=== PATIENT | male | born 1975 | race American Indian/Alaskan Native ===

== ENCOUNTER 2020-11-09 11:45 | Observation (INO) | payer OTHER ==
[2020-11-10 03:21] LABS: Basophils % (Auto) 0.4 % (0.0-1.8); Eosinophils # (Auto) 0.2 K/mm3 (0.0-0.4); Eosinophils % (Auto) 2.2 % (0.0-4.3); Hematocrit 43.7 % (35.5-45.6); Hemoglobin 14.6 gm/dl (11.8-15.2); Lymphocytes # (Auto) 1.4 K/mm3 (1.2-5.4); Mean Corpuscular HGB Conc 34 % (32-34); Mean Corpuscular Volume 85 fl (84-94); Monocytes # (Auto) 0.7 K/mm3 (0.0-0.8); Monocytes % (Auto) 8.8 % (0.0-7.3); Platelet Count 359 K/mm3 (140-440); Red Blood Count 5.17 M/mm3 (3.65-5.03); Red Cell Distribution Width 13.5 % (13.2-15.2)
[2020-11-10 04:04] LABS: Alanine Aminotransferase 14 units/L (7-56); Albumin 4.6 g/dL (3.9-5); BUN/Creatinine Ratio 10; Blood Urea Nitrogen 11 mg/dL (9-20); Hemolysis Index 6
--- NOTE | 2020-11-10 04:54 | Cat Scan Report ---
CT abdomen pelvis w con INDICATION / CLINICAL INFORMATION: Pt complains of bi-lateral mid-abdominal pain x 8 days.. TECHNIQUE: Axial CT imaging of abdomen and pelvis was obtained with IV contrast. Coronal and sagittal reformatte d imaging obtained and reviewed. All CT scans at this location are performed using CT dose reduction for ALARA by means of automated exposure control. COMPARISON: None available. FINDINGS: CT abdomen with contrast demonstrates normal appearance of the liver, spleen, pancreas, kidneys, and adrenal glands. The gallbladder appearance is abnormal. There is a large calcified gallstone in the gallbladder neck. This gallstone measures approximately 2.2 cm. The gallbladder is abnormally distended measuring 12.5 cm in length. Additionally there is gallbladder wall thickening. All of the findings are concerning for the presence of acute cholecystitis. No intrahepatic biliary dilatation noted. CT pelvis with contrast does not demonstrate any significant mass, free fluid, or focal inflammatory change. A normal appendix is present. Prostate gland is mildly enlarged. GI tract is unremarkable. Visualized lung bases are clear. No significant acute osseous abnormality. IMPRESSION: 1. Abnormal appearance of the gallbladder. Overall appearance is most consistent with acute cholecyst itis. There is large calcified gallstone within the gallbladder neck with associated gallbladder dist ention and gallbladder wall thickening. 2. Prostate gland is mildly enlarged. 3. No other significant finding. Signer Name: Tonya Nogueira MD Signed: 11/10/2020 4:50 AM Workstation Name: [email or web address]
[2020-11-10] MEDS ORDERED: SODIUM CHLORIDE 0.9% 1000 ML 1,000 ML IV ONE (05:55)
[2020-11-10] MEDS ORDERED: MORPHINE 4 MG/1 ML INJ IV ONE (05:55)
[2020-11-10] MEDS ORDERED: FAMOTIDINE 20 MG/2 ML INJ IV ONE (05:55)
[2020-11-10] MEDS ORDERED: PIPERACIL/TAZOBACTA 4.5/NS 100 4.5 GM/100 ML VIAL IV ONE (05:55)
[2020-11-10] MEDS ORDERED: ONDANSETRON 4 MG/2 ML INJ IV ONE (05:55)
--- NOTE | 2020-11-10 05:58 | Emergency Department Report ---
ED Abdominal Pain HPI - General Chief Complaint: Abdominal Pain Stated Complaint: ABDOMINAL PAIN Source: patient Mode of arrival: Ambulatory Limitations: No Limitations - History of Present Illness Initial Comments: Patient is a 45-year-old -Algerian male with no past medical history presents to the ED with complaint of acute onset persistent diffuse abdominal pain that radiates to the right upper quadrant and epigastric area as well as the right flank for the last 4 days worse in the last 2 days with nausea. Patient states that the pain is persistent and constant and is crampy, sharp and appears to get worse with food. Patient denies fever, chills, vomiting, chest pain, shortness of breath, diarrhea, dysuria, urinary frequency and urgency, testicular pain, hematuria, traumatic injury, back pain or heavy lifting and fall. MD Complaint: abdominal pain (diffuse, worse in RUQ area), other (Nausea) -: Sudden, days(s) (4) Location: diffuse, RUQ Radiation: RUQ, epigastric Migration to: no migration Severity: severe Severity scale (0 -10): 8 Quality: cramping, aching, sharp Consistency: constant Improves With: nothing Worsens With: eating Associated Symptoms: denies other symptoms, nausea, anorexia. denies: vomiting, diarrhea, fever, chills, dysuria, hematemesis, hematochezia, melena, hematuria, syncope - Related Data Allergies Allergy/AdvReac Type Severity Reaction Status Date / Time No Known Allergies Allergy Verified 11/10/20 02:50 ED Review of Systems ROS: Stated complaint: ABDOMINAL PAIN Other details as noted in HPI Constitutional: denies: chills, fever Eyes: denies: eye pain, eye discharge, vision change ENT: denies: ear pain, throat pain Respiratory: denies: cough, shortness of breath, wheezing Cardiovascular: denies: chest pain, palpitations Endocrine: no symptoms reported Gastrointestinal: abdominal pain, nausea. denies: vomiting, diarrhea Genitourinary: denies: urgency, dysuria Musculoskeletal: denies: back pain, joint swelling, arthralgia Skin: denies: rash, lesions Neurological: denies: headache, weakness, paresthesias Psychiatric: denies: anxiety, depression Hematological/Lymphatic: denies: easy bleeding, easy bruising ED Past Medical Hx - Past Medical History Previous Medical History?: No - Surgical History Past Surgical History?: No - Social History Smoking Status: Current Some Day Smoker Substance Use Type: None ED Physical Exam - General Limitations: No Limitations General appearance: alert, in no apparent distress - Head Head exam: Present: atraumatic, normocephalic, normal inspection - Eye Eye exam: Present: normal appearance, PERRL, EOMI Pupils: Present: normal accommodation - ENT ENT exam: Present: normal exam, normal orophraynx, mucous membranes moist, TM's normal bilaterally, normal external ear exam - Neck Neck exam: Present: normal inspection, full ROM - Respiratory Respiratory exam: Present: normal lung sounds bilaterally. Absent: respiratory distress, wheezes, rales, rhonchi, chest wall tenderness, accessory muscle use, decreased breath sounds, prolonged expiratory - Cardiovascular Cardiovascular Exam: Present: regular rate, normal rhythm, normal heart sounds. Absent: systolic murmur, diastolic murmur, rubs, gallop - GI/Abdominal GI/Abdominal exam: Present: soft, tenderness (Palpable RUQ tenderness with guarding and positive Funes sign), guarding, normal bowel sounds. Absent: rebound, rigid, hyperactive bowel sounds, hypoactive bowel sounds, organomegaly - Extremities Exam Extremities exam: Present: normal inspection, full ROM, normal capillary refill - Back Exam Back exam: Present: normal inspection, full ROM. Absent: tenderness, CVA tenderness (R), CVA tenderness (L), muscle spasm, paraspinal tenderness, vertebral tenderness - Neurological Exam Neurological exam: Present: alert, oriented X3, CN II-XII intact, normal gait, reflexes normal - Psychiatric Psychiatric exam: Present: normal affect, normal mood - Skin Skin exam: Present: warm, dry, intact, normal color. Absent: rash ED Medical Decision Making - Lab Data Result diagrams: 11/10/20 02:53 11/10/20 02:53 - Radiology Data Radiology results: report reviewed, image reviewed Findings [facility] [address] [place] [address] Cat Scan Report Signed Patient: SABA VIGIL MR #: [id number] : 1975 Acct:[id number] Age/Sex: 45 / M ADM Date: 11/09/20 Loc: ED Attending Dr: Ordering Physician: RUBEN TORRE Date of Service: 11/10/20 Procedure(s): CT abdomen pelvis w con Accession Number(s): [id number] cc: RUBEN TORRE CT abdomen pelvis w con INDICATION / CLINICAL INFORMATION: Pt complains of bi-lateral mid-abdominal pain x 8 days.. TECHNIQUE: Axial CT imaging of abdomen and pelvis was obtained with IV contrast. Coronal and sagittal reformatted imaging obtained and reviewed. All CT scans at this location are performed using CT dose reduction for ALARA by means of automated exposure control. COMPARISON: None available. FINDINGS: CT abdomen with contrast demonstrates normal appearance of the liver, spleen, pancreas, kidneys, and adrenal glands. The gallbladder appearance is abnormal. There is a large calcified gallstone in the gallbladder neck. This gallstone measures approximately 2.2 cm. The gallbladder is abnormally distended measuring 12.5 cm in length. Additionally there is gallbladder wall thickening. All of the findings are concerning for the presence of acute cholecystitis. No intrahepatic biliary dilatation noted. CT pelvis with contrast does not demonstrate any significant mass, free fluid, or focal inflammatory change. A normal appendix is present. Prostate gland is mildly enlarged. GI tract is unremarkable. Visualized lung bases are clear. No significant acute osseous abnormality. IMPRESSION: 1. Abnormal appearance of the gallbladder. Overall appearance is most consistent with acute cholecystitis. There is large calcified gallstone within the gallbladder neck with associated gallbladder distention and gallbladder wall thickening. 2. Prostate gland is mildly enlarged. 3. No other significant finding. Signer Name: Tonya Nogueira MD Signed: 11/10/2020 4:50 AM Workstation Name: [email or web address] Transcribed By: JR Dictated By: Tonya Nogueira MD Electronically Authenticated By: Tonya Nogueira MD Signed Date/Time: 11/10/20449 DD/ 0445 TD/TT: - Medical Decision Making This is a 45-year-old -Algerian male with no past medical history presents to the ED with complaint of acute onset persistent diffuse abdominal pain that radiates to the right upper quadrant and epigastric area as well as the right flank for the last 4 days worse in the last 2 days with nausea. Patient states that the pain is persistent and constant and is crampy, sharp and appears to get worse with food. In the ED, patient is alert and oriented x3 and is not in distress but appears to be in significant pain. Patient was treated for pain in the ED and also given antiemetics and antacids. Patient also rec eived normal saline 1 L IV bolus x1. Lab test results were reviewed and are all nonactionable. Abdomen pelvis CT scan with contrast showed abnormal appearance of the gallbladder. Overall appearance is most consistent with acute cholecystitis. There is large calcified gallstone within the gallbladder neck with associated gallbladder distention and gallbladder wall thickening. Prostate gland is mildly enlarged. No other significant finding. This findings were discussed with the ED attending physician Dr. Quinonez who agreed the plan of care to admit the patient after consultation with his general surgeon on-call Dr. Mathis. I therefore paged and discussed the patient's case with the general surgeon on-call Dr. Mathis who advised that the patient be admitted by the hospitalist physician on-call and that the patient be kept n.p.o. and be started on Zosyn IV with normal saline IV boluses and pain control. Dr. Mathis to consult on the patient upon admission. Dr. Mathis also advised that gallbladder ultrasound be also ordered. I therefore paged these findings also with the hospitalist nurse practitioner Ms. Emerald Romero for Dr. Jeter who admitted the patient to the hospital. These plans were discussed with the patient who agreed the plan of care. - Differential Diagnosis Gastroenteritis; Gallstones; Appendicitis; Gastritis; GERD; Kidney stones Critical care attestation.: If time is entered above; I have spent that time in minutes in the direct care of this critically ill patient, excluding procedure time. ED Disposition Clinical Impression: Acute abdominal pain in right upper quadrant, Cholelithiasis and acute cholecystitis without obstruction Disposition: OP ADMIT IP TO THIS HOSP Is pt being admited?: Yes Does the pt Need Aspirin: No Condition: Stable Instructions: Cholelithiasis, Cholelithiasis, [id number] Referrals: PRIMARY CARE, [Primary Care Provider] - 3-5 Days Time of Disposition: 06:07 Print Language: TUVALUAN
[2020-11-10] MEDS ORDERED: ONDANSETRON 4 MG/2 ML INJ IV PRN ×2 (06:12→08:00)
[2020-11-10] MEDS ORDERED: ACETAMINOPHEN 325 MG TAB PO PRN (06:12)
--- NOTE | 2020-11-10 07:16 | Ultrasound Report ---
ULTRASOUND ABDOMEN, LIMITED (RIGHT UPPER QUADRANT) INDICATION: Right upper quadrant pain. COMPARISON: CT abdomen pelvis 11/10/2020 FINDINGS: Pancreas: Visualized portion shows no significant abnormality. Liver: Normal. Gallbladder: There is a large gallstone within the gallbladder neck measuring approximately 2 cm. Sma ll amount of sludge is present within the gallbladder as well. Gallbladder wall is abnormally thicken ed measuring 5 mm. Bile ducts: Common Bile Duct is 3 Free fluid: None. Additional Findings: Right kidney is unremarkable. IMPRESSION: 1. Findings consistent with acute cholecystitis. There is cholelithiasis as well as gallbladder wall thickening. Large gallstone is present within the gallbladder neck. 2. No other significant finding. Signer Name: Tonya Nogueira MD Signed: 11/10/2020 7:12 AM Workstation Name: [id number]
--- NOTE | 2020-11-10 07:39 | History and Physical Report ---
History of Present Illness Date of examination: 11/10/20 Date of admission: 11/10/20 06:12 History of present illness: This is a 45 year old male who is a current smoker (2-3 cigarettes/day for "long time") who presented to the emergency department on 11/10 with complaint of acute onset persistent diffuse abdominal pain with radiation to the right upper quadrant, epigastric and bilateral flank rated at a 10/10 which started after dinner on 11/05 is constant, crampy, sharp and worsens with p.o. intake and associated with night sweats. Patient states that he felt similar abdominal pain a week before but the pain resolved on its own. Patient reports decreased p.o. intake since 11/06 given increase in pain with intake and no bowel movement since 11/04. Patient states that his pain started as an epigastric pain and evolved to include right upper quadrant and bilateral flanks. Patient denies any chest pain, shortness of breath, hemoptysis, nausea, vomiting, diarrhea, hemoptysis, fevers, chills, recent weight loss, loss of the sense of taste or smell, travel, recent sick contacts or known exposure to COVID-19. Work-up in the emergency department included no significant lab work, abdomen/pelvis CT which showed a large calcified gallstone in the gallbladder neck with a distended gallbladder and wall thickening for acute cholecystitis and mildly enlarged prostate and an abdominal ultrasound findings are consistent with acute cholecystitis, cholelithiasis as well as gallbladder wall thickening. General surgery was consulted in the emergency department and he received 1 L normal saline bolus, morphine, Zofran and Zosyn. Patient will be admitted to the hospital service for acute cholecystitis with cholelithiasis. No home medications to reconcile, no prior visits to review and advance care planning conducted at bedside. Past History Past Medical History: No medical history Past Surgical History: No surgical history Social history: , lives with family, smoking, full code. denies: alcohol abuse, prescription drug abuse, IV drug use Family history: no significant family history Medications and Allergies Allergies Allergy/AdvReac Type Severity Reaction Status Date / Time No Known Allergies Allergy Verified 11/10/20 02:50 Active Meds: Active Medications Acetaminophen (Acetaminophen 325 Mg Tab) 650 mg PO Q4H PRN PRN Reason: Pain MILD(1-3)/Fever >100.5/QUIÑONES Ondansetron HCl (Ondansetron 4 Mg/2 Ml Inj) 4 mg IV Q8H PRN PRN Reason: Nausea And Vomiting Sodium Chloride (Sodium Chloride 0.9% 10 Ml Flush Syringe) 10 ml IV BID RODRIGUE Sodium Chloride (Sodium Chloride 0.9% 10 Ml Flush Syringe) 10 ml IV PRN PRN PRN Reason: LINE FLUSH Review of Systems Constitutional: night sweats, poor appetite, no weight loss, no weight gain, no fever, no chills, no sweats, no anorexia, no fatigue, no weakness, no malaise, no lethargy Ears, nose, mouth and throat: no ear pain, no ear discharge, no tinnitis, no decreased hearing, no nose pain, no nasal congestion, no nasal discharge, no epistaxis, no bleeding gums, no dental pain, no mouth pain, no sore throat, no post-nasal drip, no headache Cardiovascular: no chest pain, no orthopnea, no palpitations, no rapid/irregular heart beat, no edema, no syncope, no lightheadedness, no shortness of breath, no dyspnea on exertion, no high blood pressure, no leg edema Respiratory: no cough, no cough with sputum, no excessive sputum, no hemoptysis, no shortness of breath, no dyspnea on exertion, no congestion, no wheezing, no pleurisy Gastrointestinal: constipation, change in bowel habits, loss of appetite, no abdominal pain, no nausea, no vomiting, no diarrhea, no hematemesis, no coffee ground emesis, no BRBPR, no melena, no hematochezia, no early satiety, no heartburn, no indigestion, no excessive gas Genitourinary Male: no dysuria, no hematuria, no flank pain, no discharge, no urinary frequency, no urinary hesitancy, no nocturia, no incontinence, no polyuria, no urinary retention, no kidney stones Rectal: no pain, no incontinence, no bleeding, no itching, no hemorrhoids Musculoskeletal: no neck stiffness, no neck pain, no shooting arm pain, no arm numbness/tingling, no low back pain, no shooting leg pain, no leg numbness/tingling, no muscle weakness, no muscle cramps, no limitation of motion, no frequent falls Integumentary: no rash, no pruritis, no redness, no sores, no wounds, no blisters, no dryness, no unusual bruising Neurological: no head injury, no transient paralysis, no paralysis, no weakness, no parathesias, no numbness, no tingling, no seizures, no syncope, no tremors, no headaches, no convulsions, no changes in smell/taste Psychiatric: anhedonia, no anxiety, no memory loss, no change in sleep habits, no sleep disturbances, no insomnia, no hypersomnia, no depression, no anxiety attacks Endocrine: no cold intolerance, no heat intolerance, no polyphagia, no excessive thirst, no polydipsia, no polyuria, no nocturia, no excessive sweating, no flushing, no weight change, no palpatations Hematologic/Lymphatic: no easy bruising Allergic/Immunologic: no allergic rhinitis, no persistent infections Exam - Constitutional Vitals: Temp Pulse Resp BP Pulse Ox 98.6 F 71 16 132/98 98 11/10/20 02:47 11/10/20 02:47 11/10/20 02:47 11/10/20 02:47 11/10/20 02:47 General appearance: Present: no acute distress - EENT Eyes: Present: PERRL, EOM intact ENT: hearing intact, clear oral mucosa, dentition normal - Neck Neck: Present: supple, normal ROM - Respiratory Respiratory effort: normal Respiratory: bilateral: CTA - Cardiovascular Rhythm: regular Heart Sounds: Present: S1 & S2. Absent: systolic murmur, diastolic murmur - Extremities Extremities: no ischemia, pulses intact, pulses symmetrical, No edema, normal temperature, normal color, Full ROM Peripheral Pulses: within normal limits - Abdominal General gastrointestinal: Present: soft, non-tender (Patient was medicated with analgesia prior to my examination), non-distended, normal bowel sounds - Integumentary Integumentary: Present: warm, dry - Musculoskeletal Musculoskeletal: strength equal bilaterally - Psychiatric Psychiatric: appropriate mood/affect, cooperative - Neurologic Neurologic: CNII-XII intact, no focal deficits, moves all extremities - Allied Health Allied health notes reviewed: nursing Results - Labs CBC & Chem 7: 11/10/20 02:53 11/10/20 02:53 Labs: Abnormal lab results 11/10/20 11/10/20 Range/Units 02:53 02:53 RBC 5.17 H (3.65-5.03) M/mm3 [place] % (Auto) 8.8 H (0.0-7.3) % Seg Neutrophils % 72.6 H (40.0-70.0) % Glucose 109 H (75-100) mg/dL - Imaging and Cardiology CT scan - abdomen: report reviewed CT scan - pelvis: report reviewed Assessment and Plan - Patient Problems (1) Cholelithiasis and acute cholecystitis without obstruction Current Visit: Yes Status: Acute Plan to address problem: -11/10 abdomen/pelvis CT: showed a large calcified gallstone in the gallbladder neck with a distended gallbladder and wall thickening for acute cholecystitis and mildly enlarged prostate. -11/10 abdominal ultrasound findings are consistent with acute cholecystitis, cholelithiasis as well as gallbladder wall thickening. -s/p zosyn in the ED and NS 1L -MIVF -Antibiotic therapy -NPO for now -General surgery consulted in the emergency department, appreciate recommendations -Supportive care (2) Tobacco abuse Current Visit: Yes Status: Acute Plan to address problem: -Patient is a current everyday smoker -Tobacco cessation counseling -Consider transdermal NicoDerm patch while inpatient if needed (3) DVT prophylaxis Current Visit: Yes Status: Acute Plan to address problem: -SCDs to bilateral lower extremities while in bed -Hold chemical anticoagulation until after evaluation by surgery -GI prophylaxis (4) Full code status Current Visit: Yes Status: Acute
[2020-11-10] MEDS ORDERED: NALOXONE 0.4 MG/1 ML INJ IV PRN (08:00)
[2020-11-10] MEDS ORDERED: MAGNESIUM HYDROXIDE (MOM) ORAL LIQD UDC PO PRN (08:00)
[2020-11-10] MEDS ORDERED: DEXTROSE 50% IN WATER (25GM) 50 ML SYRINGE IV PRN (08:00)
[2020-11-10] MEDS: HYDROmorphone 1 MG/1 ML INJ IV PRN ×2 (08:10→15:54)
[2020-11-10] MEDS: INSULIN REGULAR, HUMAN 100 UNIT/ML 3ML VIAL SUB-Q SCH ×2 (08:11→14:32)
[2020-11-10] MEDS ORDERED: SODIUM CHLORIDE 0.9% 1000 ML 1,000 ML IV SCH (08:30)
--- NOTE | 2020-11-10 10:06 | Consultation ---
History of Present Illness Consult date: 11/10/20 Reason for consult: abdominal pain (45 yo male with 5 days of abdominal pain, most severe in the RUQ. He denies associated nausea, vomiting, melena, hematochezia, change in bowel habits or urinary complaints.) Past History Past Medical History: No medical history Past Surgical History: No surgical history Social history: , lives with family, smoking, full code. denies: alcohol abuse, prescription drug abuse, IV drug use Family history: no significant family history Medications and Allergies Allergies Allergy/AdvReac Type Severity Reaction Status Date / Time No Known Allergies Allergy Verified 11/10/20 02:50 Active Meds: Active Medications Acetaminophen (Acetaminophen 325 Mg Tab) 650 mg PO Q4H PRN PRN Reason: Pain MILD(1-3)/Fever >100.5/QUIÑONES Dextrose (Dextrose 50% In Water (25gm) 50 Ml Syringe) 50 ml IV Q30MIN PRN; Protocol PRN Reason: Hypoglycemia Docusate Sodium (Docusate Sodium 100 Mg Cap) 100 mg PO BID RODRIGUE Famotidine (Famotidine 20 Mg/2 Ml Inj) 20 mg IV BID RODRIGUE Hydromorphone HCl (Hydromorphone 1 Mg/1 Ml Inj) 0.5 mg IV Q3H PRN PRN Reason: Pain , Severe (7-10) Last Admin: 11/10/20 08:10 Dose: 0.5 mg Documented by: Piperacillin Sod/Tazobactam Sod (Zosyn/Ns 4.5gm/100ml) 4.5 gm in 100 mls @ 200 mls/hr IV Q8H RODRIGUE; Protocol Sodium Chloride (Nacl 0.9% 1000 Ml) 1,000 mls @ 100 mls/hr IV DIRECT RODRIGUE Insulin Human Regular (Insulin Regular, Human 100 Unit/Ml 3ml Vial) 0 unit SUB- Q Q6H RODRIGUE; Protocol Last Admin: 11/10/20 08:11 Dose: Not Given Documented by: Magnesium Hydroxide (Magnesium Hydroxide (Mom) Oral Liqd Udc) 30 ml PO Q4H PRN PRN Reason: Constipation Last Admin: 11/10/20 08:11 Dose: 30 ml Documented by: Morphine Sulfate (Morphine 2 Mg/1 Ml Inj) 2 mg IV Q4H PRN PRN Reason: Pain, Moderate (4-6) Naloxone HCl (Naloxone 0.4 Mg/1 Ml Inj) 0.1 mg IV Q2MIN PRN PRN Reason: Res Rate </= 8 or 02 SAT < 92% Ondansetron HCl (Ondansetron 4 Mg/2 Ml Inj) 4 mg IV Q6H PRN PRN Reason: Nausea And Vomiting Senna (Sennosides 8.6 Mg Tab) 8.6 mg PO Q12HR RODRIGUE Sodium Chloride (Sodium Chloride 0.9% 10 Ml Flush Syringe) 10 ml IV BID RODRIGUE Sodium Chloride (Sodium Chloride 0.9% 10 Ml Flush Syringe) 10 ml IV PRN PRN PRN Reason: LINE FLUSH Review of Systems All systems: negative (none) Exam Vital Signs Temp Pulse Resp BP Pulse Ox 98.6 F 71 16 132/98 98 11/10/20 02:47 11/10/20 02:47 11/10/20 02:47 11/10/20 02:47 11/10/20 02:47 - General physical appearance Positive: well developed, well nourished, no distress - Eyes Positive: PERRL, normal occular movement - ENT Positive: normal pinna, normal nares, normal mucosa, no hearing loss, no congestion - Neck Positive: no masses, no bruits, trachea midline, no venous distension - Respiratory Positive: normal expansion, normal respiratory effort, clear to auscultation - Cardiovascular Rhythm: regular Heart Sounds: Present: S1 & S2. Absent: rub, click - Extremities Extremities: no ischemia, pulses symmetrical, No edema - Abdomen Abdomen: Present: soft, bowel sounds normal, other (Mildly tender in the RUQ without rebound or guarding.). Absent: distended Hernia: none - Genitourinary Male Genitourinary: normal - Integumentary no rash, no growths, no abnormal pigmentation - Neurologic Neurologic: alert and oriented to time, place and person, motor strength and sensation are grossly intact - Musculoskeletal normal gait, normal posture - Psychiatric Psychiatric: appropriate mood/affect, intact judgment & insight Results - Labs 11/10/20 02:53 11/10/20 02:53 Abnormal lab results 11/10/20 11/10/20 Range/Units 02:53 02:53 RBC 5.17 H (3.65-5.03) M/mm3 [place] % (Auto) 8.8 H (0.0-7.3) % Seg Neutrophils % 72.6 H (40.0-70.0) % Glucose 109 H (75-100) mg/dL Diabetes panel 11/10/20 Range/Units 02:53 Sodium 137 (137-145) mmol/L Potassium 4.2 (3.6-5.0) mmol/L Chloride 98.4 (98-107) mmol/L Carbon Dioxide 26 (22-30) mmol/L BUN 11 (9-20) mg/dL Creatinine 1.1 (0.8-1.3) mg/dL Glucose 109 H (75-100) mg/dL Calcium 10.0 (8.4-10.2) mg/dL AST 10 (5-40) units/L ALT 14 (7-56) units/L Alkaline Phosphatase 51 (35-129) units/L Total Protein 7.2 (6.3-8.2) g/dL Albumin 4.6 (3.9-5) g/dL Calcium panel 11/10/20 Range/Units 02:53 Calcium 10.0 (8.4-10.2) mg/dL Albumin 4.6 (3.9-5) g/dL Pituitary panel 11/10/20 Range/Units 02:53 Sodium 137 (137-145) mmol/L Potassium 4.2 (3.6-5.0) mmol/L Chloride 98.4 (98-107) mmol/L Carbon Dioxide 26 (22-30) mmol/L BUN 11 (9-20) mg/dL Creatinine 1.1 (0.8-1.3) mg/dL Glucose 109 H (75-100) mg/dL Calcium 10.0 (8.4-10.2) mg/dL Adrenal panel 11/10/20 Range/Units 02:53 Sodium 137 (137-145) mmol/L Potassium 4.2 (3.6-5.0) mmol/L Chloride 98.4 (98-107) mmol/L Carbon Dioxide 26 (22-30) mmol/L BUN 11 (9-20) mg/dL Creatinine 1.1 (0.8-1.3) mg/dL Glucose 109 H (75-100) mg/dL Calcium 10.0 (8.4-10.2) mg/dL Total Bilirubin 0.40 (0.1-1.2) mg/dL AST 10 (5-40) units/L ALT 14 (7-56) units/L Alkaline Phosphatase 51 (35-129) units/L Total Protein 7.2 (6.3-8.2) g/dL Albumin 4.6 (3.9-5) g/dL - Imaging CT scan - abdomen: report reviewed CT scan - pelvis: report reviewed US - abdomen: report reviewed Assessment and Plan - Patient Problems (1) Acute cholecystitis Current Visit: Yes Status: Acute Plan to address problem: 1) NPO 2) IV Zosyn 3) I will post for lap arnold tomorrow. However, pt has [facility] insurance which usually requires either a PA from [place] for treatment at a non- [place] facility or more often, transfer to a [place] facility for definitive treatment. I have spoken to the director of our PA department re getting PA for this pt's care vs transferring him to a [place] facility. She will get back with me today re what [place] says.
[2020-11-10] MEDS: PIPERACIL/TAZOBACTA 4.5/NS 100 4.5 GM/100 ML VIAL IV SCH ×2 (10:38→16:01)
[2020-11-10] MEDS: DOCUSATE SODIUM 100 MG CAP PO SCH ×2 (10:39→21:32)
[2020-11-10] MEDS: SENNOSIDES 8.6 MG TAB PO SCH ×2 (10:39→21:33)
[2020-11-10 10:59] LABS: INR 1.18 (0.87-1.13)
[2020-11-10 11:00] LABS: Partial Thromboplastin Time 30.3 Sec. (24.2-36.6)
[2020-11-10] MEDS: FAMOTIDINE 20 MG/2 ML INJ IV SCH ×2 (11:46→21:34)
--- NOTE | 2020-11-10 19:07 | Event Note ---
Date: 11/10/20 I have called [facility] physician [phone] on 11/10/2020 at 6:55 PM and discussed about [facility] patient , Mr. Denny Berry Who was admitted with acute cholecystitis, informed that surgery has evaluated the patient and has scheduled for lap cholecystectomy for tomorrow 11/11/2020, I answered all her questions. agreed with the current plan of care.
[2020-11-10] MEDS: MORPHINE 2 MG/1 ML INJ IV PRN (21:40)
[2020-11-11] MEDS: INSULIN REGULAR, HUMAN 100 UNIT/ML 3ML VIAL SUB-Q SCH ×4 (01:17→23:17)
[2020-11-11] MEDS: PIPERACIL/TAZOBACTA 4.5/NS 100 4.5 GM/100 ML VIAL IV SCH ×3 (01:28→17:13)
[2020-11-11] MEDS: DEXTROSE 5% IN WATER 1,000 ML IV SCH ×3 (01:29→21:56)
[2020-11-11] MEDS ORDERED: DEXTROSE 50% IN WATER (25GM) 50 ML SYRINGE IV ONE (01:34)
[2020-11-11 02:19] LABS: Bilirubin,Urine NEG (Negative); Blood,Urine NEG (Negative); Color,Urine Yellow (Yellow); Mucus,Urine FEW /HPF; Protein,Urine <15 mg/dL mg/dL (Negative)
[2020-11-11 06:12] LABS: Basophils % (Auto) 0.4 % (0.0-1.8); Eosinophils # (Auto) 0.2 K/mm3 (0.0-0.4); Eosinophils % (Auto) 2.5 % (0.0-4.3); Hematocrit 39.7 % (35.5-45.6); Lymphocytes # (Auto) 1.2 K/mm3 (1.2-5.4); Lymphocytes % (Auto) 18.9 % (13.4-35.0); Mean Corpuscular HGB Conc 33 % (32-34); Mean Corpuscular Volume 85 fl (84-94); Monocytes # (Auto) 0.6 K/mm3 (0.0-0.8); Monocytes % (Auto) 10.1 % (0.0-7.3); Platelet Count 297 K/mm3 (140-440); Red Blood Count 4.65 M/mm3 (3.65-5.03); Red Cell Distribution Width 13.9 % (13.2-15.2)
[2020-11-11 06:31] LABS: Alanine Aminotransferase 13 units/L (7-56); Albumin 3.7 g/dL (3.9-5); BUN/Creatinine Ratio 9; Blood Urea Nitrogen 11 mg/dL (9-20); Calcium 8.7 mg/dL (8.4-10.2); Hemolysis Index 22
[2020-11-11] MEDS: SENNOSIDES 8.6 MG TAB PO SCH ×2 (09:59→21:38)
[2020-11-11] MEDS: FAMOTIDINE 20 MG/2 ML INJ IV SCH ×2 (09:59→21:38)
[2020-11-11] MEDS: DOCUSATE SODIUM 100 MG CAP PO SCH ×2 (10:00→21:38)
[2020-11-11] MEDS ORDERED: HYDROmorphone 1 MG/1 ML INJ ONE (10:30)
[2020-11-11] MEDS ORDERED: LIDOCAINE MPF (2%) 20 MG/1 ML VIAL 5 ML ONE (10:31)
[2020-11-11] MEDS ORDERED: propofoL 200 MG/20 ML VIAL IV ONE (10:31)
[2020-11-11] MEDS ORDERED: BUPIVACAINE-EPINEPHRINE/PF 0.25%-1:200,000 (30 ML) VIAL INFILTRATI ONE ×2 (10:38→11:58)
--- NOTE | 2020-11-11 10:53 | Anesthesia Consultation ---
Anesthesia Consult and Med Hx Date of service: 11/11/20 - Airway Anesthetic Teeth Evaluation: Chipped (multiple chipped teeth) ROM Head & Neck: Adequate Mental/Hyoid Distance: Adequate Mallampati Class: Class II Intubation Access Assessment: Probably Good - Pre-Operative Health Status ASA Pre-Surgery Classification: ASA2 Proposed Anesthetic Plan: General - Pulmonary Hx Smoking: Yes (2-3 cig/day x 25 years) - Gastrointestinal Hx Gastroesophageal Reflux Disease: Yes - Endocrine Hx Liver Disease: Yes (cholecystitis) - Other Systems Hx Substance Use: Yes (h/o marijuana, not recently)
--- NOTE | 2020-11-11 10:53 | Anesthesia Day of Surgery ---
Anesthesia Day of Surgery - Day of Surgery Patient Examined: Yes Patient H&P Reviewed: Yes Patient is NPO: Yes
[2020-11-11] MEDS ORDERED: LACTATED RINGERS 1,000 ML ONE ×2 (11:08→12:32)
[2020-11-11] MEDS ORDERED: ROCURONIUM 50 MG/5 ML INJ IV ONE ×2 (11:08→12:32)
[2020-11-11] MEDS ORDERED: SODIUM CHLORIDE 0.9% IRR 1,500 ML BOTTLE IR ONE (11:59)
[2020-11-11] MEDS ORDERED: SODIUM CHLORIDE 0.9% IRRIG SOLN 2000 ML IR ONE (12:19)
[2020-11-11] MEDS ORDERED: ONDANSETRON 4 MG/2 ML INJ ONE (13:13)
[2020-11-11] MEDS ORDERED: GLYCOPYRROLATE 0.4 MG/2 ML INJ ONE (13:13)
[2020-11-11] MEDS ORDERED: NEOSTIGMINE 10MG/10 ML INJ MDV ONE (13:13)
[2020-11-11] MEDS ORDERED: KETOROLAC 30 MG/1 ML INJ ONE (13:28)
--- NOTE | 2020-11-11 13:45 | Progress Note ---
Assessment and Plan - Patient Problems (1) Cholelithiasis and acute cholecystitis without obstruction Current Visit: Yes Status: Acute Plan to address problem: -11/10 abdomen/pelvis CT: showed a large calcified gallstone in the gallbladder neck with a distended gallbladder and wall thickening for acute cholecystitis and mildly enlarged prostate. -11/10 abdominal ultrasound findings are consistent with acute cholecystitis, cholelithiasis as well as gallbladder wall thickening. -s/p zosyn in the ED and NS 1L -MIVF -Antibiotic therapy -NPO for now -General surgery consulted in the emergency department, appreciate recommendations -Supportive care -11/11 laparoscopic cholecystectomy with general surgery scheduled for today (2) Tobacco abuse Current Visit: Yes Status: Acute Plan to address problem: -Patient is a current everyday smoker -Tobacco cessation counseling -Consider transdermal NicoDerm patch while inpatient if needed (3) DVT prophylaxis Current Visit: Yes Status: Acute Plan to address problem: -SCDs to bilateral lower extremities while in bed -Lovenox subcu -GI prophylaxis History Interval history: This is a 45 year old male who is a current smoker (2-3 cigarettes/day for "long time") who presented to the emergency department on 11/10 with complaint of acute onset persistent diffuse abdominal pain with radiation to the right upper quadrant, epigastric and bilateral flank rated at a 10/10 which is constant, crampy, sharp and worsens with p.o. intake and associated with night sweats. Work-up in the emergency department included no significant lab work, abdomen/pelvis CT which showed a large calcified gallstone in the gallbladder neck with a distended gallbladder and wall thickening for acute cholecystitis and mildly enlarged prostate and an abdominal ultrasound findings are consistent with acute cholecystitis, cholelithiasis as well as gallbladder wall thickening. General surgery was consulted in the emergency department. Patient is scheduled for laparoscopic cholecystectomy today with surgery. Patient was hypoglycemic overnight therefore his MIVF was changed to D5W. Patient reports that his pain has decreased. Hospitalist Physical - Constitutional Vitals: Temp Pulse Resp BP Pulse Ox 98.6 F 60 18 116/67 97 11/11/20 07:47 11/11/20 07:47 11/11/20 07:47 11/11/20 07:47 11/11/20 07:47 General appearance: Present: no acute distress - EENT Eyes: Present: PERRL, EOM intact ENT: clear oral mucosa - Neck Neck: Present: normal ROM - Respiratory Respiratory effort: normal Respiratory: bilateral: CTA - Cardiovascular Rhythm: regular Heart Sounds: Present: S1 & S2. Absent: systolic murmur, diastolic murmur - Extremities Extremities: no ischemia, pulses intact, pulses symmetrical, No edema, normal temperature, normal color, Full ROM Peripheral Pulses: within normal limits - Abdominal General gastrointestinal: soft, non-tender, non-distended, normal bowel sounds - Integumentary Integumentary: Present: clear, warm, dry - Psychiatric Psychiatric: cooperative - Neurologic Neurologic: CNII-XII intact, no focal deficits, moves all extremities - Allied Health Allied health notes reviewed: nursing Results - Labs CBC & Chem 7: 11/11/20 05:34 11/11/20 05:34 Labs: Laboratory Last Values WBC 6.1 K/mm3 (4.5-11.0) 11/11/20 05:34 RBC 4.65 M/mm3 (3.65-5.03) 11/11/20 05:34 Hgb 13.0 gm/dl (11.8-15.2) 11/11/20 05:34 Hct 39.7 % (35.5-45.6) 11/11/20 05:34 MCV 85 fl (84-94) 11/11/20 05:34 MCH 28 pg (28-32) 11/11/20 05:34 MCHC 33 % (32-34) 11/11/20 05:34 RDW 13.9 % (13.2-15.2) 11/11/20 05:34 Plt Count 297 K/mm3 (140-440) 11/11/20 05:34 Lymph % (Auto) 18.9 % (13.4-35.0) 11/11/20 05:34 [place] % (Auto) 10.1 % (0.0-7.3) H 11/11/20 05:34 Eos % (Auto) 2.5 % (0.0-4.3) 11/11/20 05:34 Baso % (Auto) 0.4 % (0.0-1.8) 11/11/20 05:34 Lymph # (Auto) 1.2 K/mm3 (1.2-5.4) 11/11/20 05:34 [place] # (Auto) 0.6 K/mm3 (0.0-0.8) 11/11/20 05:34 Eos # (Auto) 0.2 K/mm3 (0.0-0.4) 11/11/20 05:34 Baso # (Auto) 0.0 K/mm3 (0.0-0.1) 11/11/20 05:34 Seg Neutrophils % 68.1 % (40.0-70.0) 11/11/20 05:34 Seg Neutrophils # 4.2 K/mm3 (1.8-7.7) 11/11/20 05:34 PT 15.0 Sec. (12.2-14.9) H 11/10/20 09:50 INR 1.18 (0.87-1.13) H 11/10/20 09:50 APTT 30.3 Sec. (24.2-36.6) 11/10/20 09:50 Sodium 143 mmol/L (137-145) 11/11/20 05:34 Potassium 4.1 mmol/L (3.6-5.0) 11/11/20 05:34 Chloride 102.9 mmol/L (98-107) 11/11/20 05:34 Carbon Dioxide 29 mmol/L (22-30) 11/11/20 05:34 Anion Gap 15 mmol/L 11/11/20 05:34 BUN 11 mg/dL (9-20) 11/11/20 05:34 Creatinine 1.2 mg/dL (0.8-1.3) 11/11/20 05:34 Estimated GFR > 60 ml/min 11/11/20 05:34 BUN/Creatinine Ratio 9 % 11/11/20 05:34 Glucose 109 mg/dL (75-100) H 11/11/20 05:34 POC Glucose 90 mg/dL (70-105) 11/11/20 05:02 Calcium 8.7 mg/dL (8.4-10.2) 11/11/20 05:34 Total Bilirubin 0.70 mg/dL (0.1-1.2) 11/11/20 05:34 AST 10 units/L (5-40) 11/11/20 05:34 ALT 13 units/L (7-56) 11/11/20 05:34 Alkaline Phosphatase 48 units/L (35-129) 11/11/20 05:34 Total Protein 5.8 g/dL (6.3-8.2) L 11/11/20 05:34 Albumin 3.7 g/dL (3.9-5) L 11/11/20 05:34 Albumin/Globulin Ratio 1.8 % 11/11/20 05:34 Lipase 40 units/L (13-60) 11/10/20 02:53 Urine Color Yellow (Yellow) 11/10/20 01:35 Urine Turbidity Clear (Clear) 11/10/20 01:35 Urine pH 5.0 (5.0-7.0) 11/10/20 01:35 Ur Specific [place] 1.028 (1.003-1.030) 11/10/20 01:35 Urine Protein <15 mg/dl mg/dL (Negative) 11/10/20 01:35 Urine Glucose (UA) Neg mg/dL (Negative) 11/10/20 01:35 Urine Ketones Neg mg/dL (Negative) 11/10/20 01:35 Urine Blood Neg (Negative) 11/10/20 01:35 Urine Nitrite Neg (Negative) 11/10/20 01:35 Urine Bilirubin Neg (Negative) 11/10/20 01:35 Urine Urobilinogen 2.0 mg/dL (<2.0) 11/10/20 01:35 Ur Leukocyte Esterase Neg (Negative) 11/10/20 01:35 Urine WBC (Auto) 1.0 /HPF (0.0-6.0) 11/10/20 01:35 Urine RBC (Auto) 1.0 /HPF (0.0-6.0) 11/10/20 01:35 Urine Mucus Few /HPF 11/10/20 01:35 Arauz/IV: Voiding Method Toilet IV Catheter Type [Right INT / Saline Lock Antecubital] Active Medications - Current Medications Current Medications: Generic Name Dose Route Start Last Admin Trade Name Freq PRN Reason Stop Dose Admin Acetaminophen 650 mg 11/10/20 06:12 Acetaminophen 325 Mg Tab PO Q4H PRN Pain MILD(1-3)/Fever >100.5/QUIÑONES Dextrose 50 ml 11/10/20 08:00 Dextrose 50% In Water (25gm) 50 Ml Syringe IV Q30MIN PRN Hypoglycemia Protocol Docusate Sodium 100 mg 11/10/20 10:00 11/11/20 10:00 Docusate Sodium 100 Mg Cap PO 100 mg BID RODRIGUE Administration Famotidine 20 mg 11/10/20 10:00 11/11/20 09:59 Famotidine 20 Mg/2 Ml Inj IV 20 mg BID RODRIGUE Administration Hydromorphone HCl 0.5 mg 11/10/20 08:00 11/10/20 15:54 Hydromorphone 1 Mg/1 Ml Inj IV 0.5 mg Q3H PRN Administration Pain , Severe (7-10) Piperacillin Sod/Tazobactam Sod 4.5 gm in 100 mls @ 200 mls/hr 11/10/20 09:00 11/11/20 09:58 Zosyn/Ns 4.5gm/100ml IV 100 mls/hr Q8H RODRIGUE Administration Protocol Dextrose 1,000 mls @ 75 mls/hr 11/11/20 02:00 11/11/20 09:58 D5w IV 75 mls/hr DIRECT RODRIGUE Administration Insulin Human Regular 0 unit 11/10/20 08:00 11/11/20 09:00 Insulin Regular, Human 100 Unit/Ml 3ml Vial SUB-Q Not Given Q6H [facility] Protocol Magnesium Hydroxide 30 ml 11/10/20 08:00 11/10/20 08:11 Magnesium Hydroxide (Mom) Oral Liqd Udc PO 30 ml Q4H PRN Administration Constipation Morphine Sulfate 2 mg 11/10/20 08:00 11/10/20 21:40 Morphine 2 Mg/1 Ml Inj IV 2 mg Q4H PRN Administration Pain, Moderate (4-6) Naloxone HCl 0.1 mg 11/10/20 08:00 Naloxone 0.4 Mg/1 Ml Inj IV Q2MIN PRN Res Rate </= 8 or 02 SAT < 92% Ondansetron HCl 4 mg 11/10/20 08:00 11/10/20 21:43 Ondansetron 4 Mg/2 Ml Inj IV 4 mg Q6H PRN Administration Nausea And Vomiting Senna 8.6 mg 11/10/20 10:00 11/11/20 09:59 Sennosides 8.6 Mg Tab PO 8.6 mg Q12HR RODRIGUE Administration Sodium Chloride 10 ml 11/10/20 10:00 11/11/20 10:00 Sodium Chloride 0.9% 10 Ml Flush Syringe IV Not Given BID RODRIGUE Sodium Chloride 10 ml 11/10/20 06:12 Sodium Chloride 0.9% 10 Ml Flush Syringe IV PRN PRN LINE FLUSH
--- NOTE | 2020-11-11 13:46 | Procedure Note ---
Date of procedure: 11/11/20 Pre-op diagnosis: acute cholecystitis Post-op diagnosis: same Procedure: Laparoscopic cholecystectomy Anesthesia: JESSICA Surgeon: MARIVEL ZAMORA Estimated blood loss: 50-100ml Pathology: list (Gallbladder and gallstones) Specimen disposition: to lab Condition: stable Disposition: PACU
--- NOTE | 2020-11-11 15:23 | Post Anesthesia Evaluation ---
- Post Anesthesia Evaluation Patient Participated: Yes Airway Patent: Yes Stable Respiratory Function: Yes Nausea/Vomiting: No Temp > 96.8F: Yes Pain Manageable: Yes Adequeate Hydration: Yes Anesthesia Complications: No Block Receding Appropriately: Not Applicable Patient on Ventilator: No
--- NOTE | 2020-11-11 18:13 | Discharge Summary ---
Providers - Providers Date of Admission: 11/10/20 06:12 Date of discharge: 11/11/20 Attending physician: RAFAELA PASCAL 11/10/20 05:59 Consult to Physician [CONS] Stat Comment: RUBEN Palomares spoke with Dr. Mathis @ [phone] Consulting Provider: MARIVEL MATHIS Physician Instructions: NPO, IV Abx, Pain meds, Hospitalist admission Reason For Exam: Acute cholelithiasis with cholecystitis Primary care physician: WHOLESALE LOAN PROCESSOR Hospitalization Condition: Stable Procedures: Laparoscopic cholecystectomy Disposition: TO HOME OR SELFCARE Time spent for discharge: 35 minutes Core Measure Documentation - Palliative Care Palliative Care/ Comfort Measures: Not Applicable - Core Measures Any of the following diagnoses?: none Exam - Constitutional Vitals: Temp Pulse Resp BP Pulse Ox 97.1 F L 71 18 139/77 95 11/11/20 15:02 11/11/20 15:02 11/11/20 15:02 11/11/20 15:02 11/11/20 15:02 General appearance: Present: no acute distress, well-nourished - EENT Eyes: Present: PERRL, EOM intact - Neck Neck: Present: supple, normal ROM - Respiratory Respiratory effort: normal Respiratory: bilateral: diminished, negative: rales, rhonchi, wheezing - Cardiovascular Rhythm: regular Heart Sounds: Present: S1 & S2 - Extremities Extremities: no ischemia, No edema - Abdominal General gastrointestinal: Present: soft, non-tender, non-distended, normal bowel sounds - Integumentary Integumentary: Present: clear, warm - Musculoskeletal Musculoskeletal: strength equal bilaterally - Psychiatric Psychiatric: appropriate mood/affect, cooperative - Neurologic Neurologic: CNII-XII intact, moves all extremities Plan Activity: advance as tolerated Diet: advance as tolerated, other (Diet as tolerated) Additional Instructions: Do not lift heavy weights 1 to 2 weeks,. Follow all the postop instructions given to you by the discharge nurse . check with surgeon upon follow-up visit. If you have worsening symptoms contact MD or go to emergency room. Follow-up with [facility] physician per schedule Follow up with: KIRIT PAREDES MD [Primary Care Provider] - 3-5 Days MARIVEL MATHIS MD [Staff Physician] - 7 Days Prescriptions: oxyCODONE /ACETAMINOPHEN [Percocet 5/325] 1 tab PO Q6HR PRN #20 tablet PRN Reason: Pain Pantoprazole [Protonix] 40 mg PO QDAY #14 tablet Ondansetron [Zofran Odt] 4 mg PO Q8HR #21 tab.miladydis
--- NOTE | 2020-11-11 20:22 | Progress Note ---
Hospitalist Physical - Constitutional Vitals: Temp Pulse Resp BP Pulse Ox 98.3 F 75 18 134/76 97 11/11/20 19:20 11/11/20 19:20 11/11/20 19:20 11/11/20 19:20 11/11/20 19:20 General appearance: Present: no acute distress, well-nourished Results - Labs CBC & Chem 7: 11/11/20 05:34 11/11/20 05:34 Labs: Laboratory Last Values WBC 6.1 K/mm3 (4.5-11.0) 11/11/20 05:34 RBC 4.65 M/mm3 (3.65-5.03) 11/11/20 05:34 Hgb 13.0 gm/dl (11.8-15.2) 11/11/20 05:34 Hct 39.7 % (35.5-45.6) 11/11/20 05:34 MCV 85 fl (84-94) 11/11/20 05:34 MCH 28 pg (28-32) 11/11/20 05:34 MCHC 33 % (32-34) 11/11/20 05:34 RDW 13.9 % (13.2-15.2) 11/11/20 05:34 Plt Count 297 K/mm3 (140-440) 11/11/20 05:34 Lymph % (Auto) 18.9 % (13.4-35.0) 11/11/20 05:34 [place] % (Auto) 10.1 % (0.0-7.3) H 11/11/20 05:34 Eos % (Auto) 2.5 % (0.0-4.3) 11/11/20 05:34 Baso % (Auto) 0.4 % (0.0-1.8) 11/11/20 05:34 Lymph # (Auto) 1.2 K/mm3 (1.2-5.4) 11/11/20 05:34 [place] # (Auto) 0.6 K/mm3 (0.0-0.8) 11/11/20 05:34 Eos # (Auto) 0.2 K/mm3 (0.0-0.4) 11/11/20 05:34 Baso # (Auto) 0.0 K/mm3 (0.0-0.1) 11/11/20 05:34 Seg Neutrophils % 68.1 % (40.0-70.0) 11/11/20 05:34 Seg Neutrophils # 4.2 K/mm3 (1.8-7.7) 11/11/20 05:34 PT 15.0 Sec. (12.2-14.9) H 11/10/20 09:50 INR 1.18 (0.87-1.13) H 11/10/20 09:50 APTT 30.3 Sec. (24.2-36.6) 11/10/20 09:50 Sodium 143 mmol/L (137-145) 11/11/20 05:34 Potassium 4.1 mmol/L (3.6-5.0) 11/11/20 05:34 Chloride 102.9 mmol/L (98-107) 11/11/20 05:34 Carbon Dioxide 29 mmol/L (22-30) 11/11/20 05:34 Anion Gap 15 mmol/L 11/11/20 05:34 BUN 11 mg/dL (9-20) 11/11/20 05:34 Creatinine 1.2 mg/dL (0.8-1.3) 11/11/20 05:34 Estimated GFR > 60 ml/min 11/11/20 05:34 BUN/Creatinine Ratio 9 % 11/11/20 05:34 Glucose 109 mg/dL (75-100) H 11/11/20 05:34 POC Glucose 113 mg/dL (70-105) H 11/11/20 16:56 Calcium 8.7 mg/dL (8.4-10.2) 11/11/20 05:34 Total Bilirubin 0.70 mg/dL (0.1-1.2) 11/11/20 05:34 AST 10 units/L (5-40) 11/11/20 05:34 ALT 13 units/L (7-56) 11/11/20 05:34 Alkaline Phosphatase 48 units/L (35-129) 11/11/20 05:34 Total Protein 5.8 g/dL (6.3-8.2) L 11/11/20 05:34 Albumin 3.7 g/dL (3.9-5) L 11/11/20 05:34 Albumin/Globulin Ratio 1.8 % 11/11/20 05:34 Lipase 40 units/L (13-60) 11/10/20 02:53 Urine Color Yellow (Yellow) 11/10/20 01:35 Urine Turbidity Clear (Clear) 11/10/20 01:35 Urine pH 5.0 (5.0-7.0) 11/10/20 01:35 Ur Specific [place] 1.028 (1.003-1.030) 11/10/20 01:35 Urine Protein <15 mg/dl mg/dL (Negative) 11/10/20 01:35 Urine Glucose (UA) Neg mg/dL (Negative) 11/10/20 01:35 Urine Ketones Neg mg/dL (Negative) 11/10/20 01:35 Urine Blood Neg (Negative) 11/10/20 01:35 Urine Nitrite Neg (Negative) 11/10/20 01:35 Urine Bilirubin Neg (Negative) 11/10/20 01:35 Urine Urobilinogen 2.0 mg/dL (<2.0) 11/10/20 01:35 Ur Leukocyte Esterase Neg (Negative) 11/10/20 01:35 Urine WBC (Auto) 1.0 /HPF (0.0-6.0) 11/10/20 01:35 Urine RBC (Auto) 1.0 /HPF (0.0-6.0) 11/10/20 01:35 Urine Mucus Few /HPF 11/10/20 01:35 Arauz/IV: Voiding Method Toilet IV Catheter Type [Right INT / Saline Lock Antecubital] Active Medications - Current Medications Current Medications: Generic Name Dose Route Start Last Admin Trade Name Freq PRN Reason Stop Dose Admin Acetaminophen 650 mg 11/10/20 06:12 Acetaminophen 325 Mg Tab PO Q4H PRN Pain MILD(1-3)/Fever >100.5/QUIÑONES Dextrose 50 ml 11/10/20 08:00 Dextrose 50% In Water (25gm) 50 Ml Syringe IV Q30MIN PRN Hypoglycemia Protocol Docusate Sodium 100 mg 11/10/20 10:00 11/11/20 10:00 Docusate Sodium 100 Mg Cap PO 100 mg BID RODRIGUE Administration Enoxaparin Sodium 40 mg 11/11/20 22:00 Enoxaparin 40 Mg/0.4 Ml Inj SUB-Q QDAY@2200 [facility] Protocol Famotidine 20 mg 11/10/20 10:00 11/11/20 09:59 Famotidine 20 Mg/2 Ml Inj IV 20 mg BID RODRIGUE Administration Hydromorphone HCl 0.5 mg 11/10/20 08:00 11/10/20 15:54 Hydromorphone 1 Mg/1 Ml Inj IV 0.5 mg Q3H PRN Administration Pain , Severe (7-10) Piperacillin Sod/Tazobactam Sod 4.5 gm in 100 mls @ 200 mls/hr 11/10/20 09:00 11/11/20 17:13 Zosyn/Ns 4.5gm/100ml IV 100 mls/hr Q8H RODRIGUE Administration Protocol Dextrose 1,000 mls @ 75 mls/hr 11/11/20 02:00 11/11/20 09:58 D5w IV 75 mls/hr DIRECT RODRIGUE Administration Insulin Human Regular 0 unit 11/10/20 08:00 11/11/20 09:00 Insulin Regular, Human 100 Unit/Ml 3ml Vial SUB-Q Not Given Q6H [facility] Protocol Magnesium Hydroxide 30 ml 11/10/20 08:00 11/10/20 08:11 Magnesium Hydroxide (Mom) Oral Liqd Udc PO 30 ml Q4H PRN Administration Constipation Morphine Sulfate 2 mg 11/10/20 08:00 11/10/20 21:40 Morphine 2 Mg/1 Ml Inj IV 2 mg Q4H PRN Administration Pain, Moderate (4-6) Naloxone HCl 0.1 mg 11/10/20 08:00 Naloxone 0.4 Mg/1 Ml Inj IV Q2MIN PRN Res Rate </= 8 or 02 SAT < 92% Ondansetron HCl 4 mg 11/10/20 08:00 11/10/20 21:43 Ondansetron 4 Mg/2 Ml Inj IV 4 mg Q6H PRN Administration Nausea And Vomiting Senna 8.6 mg 11/10/20 10:00 11/11/20 09:59 Sennosides 8.6 Mg Tab PO 8.6 mg Q12HR RODRIGUE Administration Sodium Chloride 10 ml 11/10/20 10:00 11/11/20 10:00 Sodium Chloride 0.9% 10 Ml Flush Syringe IV Not Given BID RODRIGUE Sodium Chloride 10 ml 11/10/20 06:12 Sodium Chloride 0.9% 10 Ml Flush Syringe IV PRN PRN LINE FLUSH
--- NOTE | 2020-11-11 20:23 | Event Note ---
Date: 11/11/20 I spoke with [facility] physician Dr. Lomeli at [phone] and discussed about [facility] patient Denny That he had uncomplicated lap cholecystectomy, day and that surgery cleared him for discharge, and I gave the discharge instructions and prescriptions. However patient is hesitant to leave the hospital I also informed that patient is hemodynamically and clinically stable for discharge
[2020-11-11] MEDS: MORPHINE 2 MG/1 ML INJ IV PRN (21:38)
[2020-11-11] MEDS ORDERED: ENOXAPARIN 40 MG/0.4 ML INJ SUB-Q SCH (22:00)
[2020-11-12] MEDS: MORPHINE 2 MG/1 ML INJ IV PRN (01:58)
[2020-11-12] MEDS: PIPERACIL/TAZOBACTA 4.5/NS 100 4.5 GM/100 ML VIAL IV SCH ×2 (01:58→08:04)
[2020-11-12] MEDS: INSULIN REGULAR, HUMAN 100 UNIT/ML 3ML VIAL SUB-Q SCH ×2 (02:09→07:58)
[2020-11-12 07:47] VITALS: BP 140/80
[2020-11-12] MEDS: SENNOSIDES 8.6 MG TAB PO SCH (08:05)
[2020-11-12] MEDS: DOCUSATE SODIUM 100 MG CAP PO SCH (08:05)
[2020-11-12] MEDS ORDERED: FAMOTIDINE 20 MG TAB PO SCH (10:00)
== END 2020-11-12 12:01 | disposition home or self-care (01) ==
LOC: ED 11:45 → 3B-SURG 11-10 06:12 → INTOOBSV 11-10 06:12
PROVIDERS: ADMIT Hospitalist; ATTEND Internal Medicine
DX: K80.10 Calculus of gallbladder with chronic cholecystitis without obstruction (principal); F17.210 Nicotine dependence, cigarettes, uncomplicated; Z79.899 Other long term (current) drug therapy
CPT/HCPCS: 36415; 47562; 74177; 76705; 80053; 81001; 82962; 83690; 85025; 85610; 85730; 88304; 96361; 96365; 96366; 96372; 96375; 96376; 99285; A4217; G0378; J1170; J1650; J1885; J2270; J2405; J2543; J2704; J2710; J7030; J7070; J7120; Q9967; J1815